=== PATIENT | female | born 1980 ===

== ENCOUNTER 2016-11-03 13:34 | Emergency (ER) | payer OTHER, SELFPAY ==
[2016-11-03 13:43] VITALS: BMI 22.6
--- NOTE | 2016-11-03 14:11 | C.PDOC ---
History Of Present Illness 36 year old female presents to the ED with complaints of worsening right shoulder pain and decreased ROM after falling onto right shoulder yesterday. Patient denies chest pain, palpitations, shortness or breath, head trauma, right hand, wrist, or elbow pain. Time Seen by Provider: 11/03/16 13:53 Chief Complaint (Nursing): Upper Extremity Problem/Injury History Per: Patient History/Exam Limitations: no limitations Onset/Duration Of Symptoms: Hrs Current Symptoms Are (Timing): Still Present Quality: "Pain" Exacerbating Factor(s): Movement Recent travel outside of the [place]: No Past Medical History Reviewed: Historical Data, Nursing Documentation, Vital Signs Vital Signs: Last Vital Signs Temp 98.0 F 11/03/16 15:32 Pulse 105 H 11/03/16 15:32 Resp 18 11/03/16 15:32 BP 111/75 11/03/16 15:32 Pulse Ox 98 11/03/16 15:43 - Medical History PMH: Anemia Family History: States: Unknown Family Hx - Social History Hx Alcohol Use: No Hx Substance Use: No - Immunization History Hx Tetanus Toxoid Vaccination: No Hx Influenza Vaccination: Yes Hx Pneumococcal Vaccination: No Review Of Systems Constitutional: Negative for: Fever, Chills Cardiovascular: Negative for: Chest Pain, Palpitations Respiratory: Negative for: Shortness of Breath Gastrointestinal: Negative for: Nausea, Vomiting Musculoskeletal: Positive for: Shoulder Pain (right shoulder pain ). Negative for: Arm Pain, Hand Pain Physical Exam - Physical Exam Appears: Non-toxic, No Acute Distress Skin: Warm, Dry Head: Atraumatic Eye(s): bilateral: Normal Inspection Oral Mucosa: Moist Neck: Supple Chest: Symmetrical, No Deformity, No Tenderness Cardiovascular: Rhythm Regular, No Murmur Respiratory: Normal Breath Sounds, No Rales, No Rhonchi, No Wheezing Extremity: No Normal ROM (Unable to perform passive or active range of right shoulder past 10 degrees, secondary to pain. ), Tenderness (Tenderness to the right shoulder ), Capillary Refill, No Deformity, No Swelling, Other (No bony rib tenderness. No clavicular tenderness. ) Pulses: Left Radial: Normal, Right Radial: Normal Neurological/Psych: Oriented x3, Normal Speech, Normal Cognition Gait: Steady ED Course And Treatment ECG: Interpreted By Me, Viewed By Me ECG Rhythm: Sinus Tachycardia Rate From EC O2 Sat by Pulse Oximetry: 98 (room air ) - Radiology CXR: Viewed By Me, Read By Radiologist CXR Interpretation: Yes: No Acute Disease, Other (No focal consolidation, significant pleural effusion, or definite pneumothorax identified.) - Other Rad Right Shoulder X-Ray X-Ray: Viewed By Me, Read By Radiologist Interpretation: HISTORY: shoulder pain. COMPARISON: None. FINDINGS: BONES: No acute displaced fracture. The distal clavicle and underlying ribs appear intact. JOINTS: No acute dislocation. Calcifications adjacent to the humeral head consistent with calcific tendinitis. SOFT TISSUES: Soft tissues appear unremarkable. No evidence of radiopaque foreign body. IMPRESSION: Calcific tendinitis. Progress Note: EKG, CXR, and right shoulder X-Ray was ordered. Patient was given morphine. Medical Decision Making Medical Decision Making: On reevaluation, patient has improved ROM of R shoulder and reports pain is resolved. Disposition - Disposition Disposition: HOME/ ROUTINE Disposition Time: 15:43 Condition: GOOD Additional Instructions: Follow up with PMD within 2 days. Return to ED if condition worsens. Motrin for pain. Prescriptions: traMADol [Ultram] 50 mg PO TID #10 tab Instructions: Calcific Tendinitis (ED) Forms: Gen Discharge Inst [place], [employer] ([place]an) Print Language: TAJIK - Clinical Impression Clinical Impression: TENDINITIS CALCIFICADA - Scribe Statement The provider has reviewed the documentation as recorded by the Scribjosselyn Mcclain All medical record entries made by the Fideliaibe were at my direction and personally dictated by me. I have reviewed the chart and agree that the record accurately reflects my personal performance of the history, physical exam, medical decision making, and the department course for this patient. I have also personally directed, reviewed, and agree with the discharge instructions and disposition.
--- NOTE | 2016-11-03 14:25 | RAD ---
PROCEDURE: Radiographs of the Right Shoulder HISTORY: shoulder pain COMPARISON: None. FINDINGS: BONES: No acute displaced fracture. The distal clavicle and underlying ribs appear intact. JOINTS: No acute dislocation. Calcifications adjacent to the humeral head consistent with calcific tendinitis. SOFT TISSUES: Soft tissues appear unremarkable. No evidence of radiopaque foreign body. IMPRESSION: Calcific tendinitis.
--- NOTE | 2016-11-03 14:30 | RAD ---
HISTORY: Palpitations COMPARISON: Chest and left rib series performed 07/27/15 TECHNIQUE: Chest PA and lateral FINDINGS: Sub optimal lateral view as the patient was unable to elevate her right arm during image acquisition. LUNGS: No focal consolidation. Please note that chest x-ray has limited sensitivity for the detection of pulmonary masses. PLEURA: No significant pleural effusion identified. No definite pneumothorax . CARDIOVASCULAR: The cardiomediastinal silhouette appears within normal limits of size. OSSEOUS STRUCTURES: No acute osseous abnormality identified. VISUALIZED UPPER ABDOMEN: Unremarkable. OTHER FINDINGS: None. IMPRESSION: No focal consolidation, significant pleural effusion, or definite pneumothorax identified.
[2016-11-03] MEDS ORDERED: Morphine 4 MG/ML VIAL ONE (14:31)
[2016-11-03 15:32] VITALS: BP 111/75; PULSE 105; RESP 18; TEMP 98
[2016-11-03 15:43] VITALS: O2SAT 98
--- NOTE | 2016-11-05 08:01 | CARD ---
APPROVED REPORT EKG Measurement Heart [id number] <Conclusion> Sinus tachycardia Otherwise normal ECG
== END 2016-11-03 14:45 | disposition home or self-care (01) ==
LOC: C.ER 13:34
DX: M75.31 Calcific tendinitis of right shoulder (principal)
CPT/HCPCS: 71020; 73030; 93005; 96374; 99285; J2270